=== PATIENT | male | born 2000 | race Hispanic/Latino ===

== ENCOUNTER 2023-10-24 14:13 | Emergency (ER) | payer OTHER ==
[~2023-10-24] VITALS: Ht 175.3 cm; Wt 66.8 kg
[2023-10-24 14:30] LABS: BASOPHILS 0.4 % (0-2); EOSINOPHILS 1.5 % (0-6); HEMOGLOBIN 15.2 g/dL (12.0-18.0); LYMPHOCYTES 26.7 % (24-44); MCH 30.1 (27-36); MCHC 33.9 g/dl (30-36); MCV 88.8 fl (81-99); MONOCYTES 6.7 % (0-12); NEUTROPHILS 64.7 % (39-80); PLATELET COUNT 165 K/uL (140-440); RBC 5.07 M/ul (4.3-5.7); RDW 12.9 (10.5-15.0)
[2023-10-24 14:47] LABS: ALBUMIN 4.2 g/dL (3.4-5.0); ALBUMIN/GLOBULIN RATIO 1.08 (1.1-2.4); ALKALINE PHOSPHATASE 103 U/L (46-116); ALT (SGPT) 13 U/L (14-59); AST (SGOT) 16 U/L (15-37); BILIRUBIN, TOTAL 1.2 ng/dL (0.2-1.0); BUN/CREATININE RATIO 12.04 (6.0-28.6); CALCIUM 9.2 mg/dL (8.5-10.1); CARBON DIOXIDE 28 mmol/L (21-32); CHLORIDE 101 mmol/L (98-107); CREATININE, SERUM 0.83 mg/dL (0.70-1.30); GLOMERULAR FILTRATION RATE,EST 125 mL/min (>60); PROTEIN, TOTAL 8.1 g/dL (6.4-8.2); UREA NITROGEN 10 mg/dL (7-18)
[2023-10-24 17:12] LABS: BILIRUBIN, URINE NEGATIVE (negative); BLOOD/HGB, URINE NEGATIVE (Negative); KETONE, URINE NEGATIVE (Negative); LEUK ESTERASE, URINE NEGATIVE (negative); NITRITE, URINE NEGATIVE (negative)
[2023-10-24 17:21] LABS: BACTERIA, URINE RARE /hpf (negative); CASTS, URINE NONE SEEN \\lpf; CRYSTALS, URINE NONE SEEN (0-1+); EPITHELIAL CELLS, URINE SQUAMOUS 1+ /lpf (0-1+); RED BLOOD CELLS, URINE 0-1 /hpf (0-5)
[2023-10-24 17:22] LABS: COLLECTION TYPE, URINE CLEAN CATCH; REFLEX CULTURE, URINE No (No)
[2023-10-24 17:25] LABS: AMPHETAMINES, URINE NEGATIVE (NEGATIVE); BARBITURATES, URINE NEGATIVE (NEGATIVE); BENZODIAZEPINE, URINE NEGATIVE (NEGATIVE); BUPRENORPHINE, URINE NEGATIVE (NEGATIVE); CANNABINOID, URINE POSITIVE (NEGATIVE); COCAINE, URINE NEGATIVE (NEGATIVE); ECSTASY, URINE NEGATIVE (NEGATIVE); FENTANYL, URINE NEGATIVE (NEGATIVE); METHADONE, URINE NEGATIVE (NEGATIVE); OPIATES, URINE NEGATIVE (NEGATIVE); OXYCODONE, URINE NEGATIVE (NEGATIVE); PHENCYCLIDINE, URINE NEGATIVE (NEGATIVE)
[2023-10-24 18:05] VITALS: BP 106/77
== END 2023-10-24 18:05 | disposition home or self-care (01) ==
LOC: ED 14:13
PROVIDERS: Emergency Medicine
DX: S27.321A Contusion of lung, unilateral, initial encounter (principal); S60.032A Contusion of left middle finger without damage to nail, initial encounter; S00.01XA Abrasion of scalp, initial encounter; E87.6 Hypokalemia; F84.0 Autistic disorder; V43.92XA Unspecified car occupant injured in collision with other type car in traffic accident, initial encounter
CPT/HCPCS: 36415; 70450; 71045; 71260; 72125; 72170; 73140; 74177; 80053; 80307; 81001; 83690; 84484; 85025; 99284-25; A9270; Q9967